=== PATIENT | female | born 1950 | race Caucasian/White ===

== ENCOUNTER 2019-12-06 15:53 | Outpatient (CLI) | payer MEDICARE, OTHER, SELFPAY ==
--- NOTE | 2019-12-06 16:06 | USCV_ITS ---
Aleida Sheriff Age: 69 Gender: F : 1950 Exam Date: 12/06/2019 16:25 Ordering Phys: Mario Hanna MD Technologist: Silvia Ferrer [place] [facility] [place] SWOLLEN LEGS HISTORY: Swollen legs PROCEDURES: The venous duplex Doppler examination of both lower extremities was performed in the standard fashion. The following venous structures were evaluated: common femoral vein, profunda vein, proximal portion of the greater saphenous vein, superficial femoral vein, and the popliteal vein. In addition, the posterior tibial and peroneal trunk were evaluated. Serial compression, augmentation maneuvers, and spectral Doppler flow evaluation were performed. FINDINGS: No DVT seen in any vessel examined CONCLUSIONS No evidence of right lower extremity DVT. No evidence of left lower extremity DVT. Thad Ward MD (Electronically Signed) Final Date: 07 Dec 2019 11:56 S
== END 2019-12-06 15:54 | disposition home or self-care (01) ==
LOC: RAD 15:59
PROVIDERS: PCP Family Medicine; Visit Provider Internal Medicine Pulmonary Disease
DX: R60.0 Localized edema (principal); M79.605 Pain in left leg; M79.604 Pain in right leg
CPT/HCPCS: 93970

== ENCOUNTER → 2020-07-26 10:25 | Outpatient (BNVA) | payer MEDICARE, OTHER, SELFPAY | PROVIDERS: PCP Family Medicine; Visit Provider Nurse Practitioner Family | DX: L40.50 Arthropathic psoriasis, unspecified (principal); Z51.81 Encounter for therapeutic drug level monitoring; Z11.1 Encounter for screening for respiratory tuberculosis | CPT/HCPCS: 80053; 85007; 85027; 85651; 86140; 86580 ==

== ENCOUNTER 2021-02-11 09:05 | Outpatient (CLI) | payer MEDICARE, OTHER, SELFPAY ==
[2021-02-11 09:39] LABS: Chol HDL Ratio 3.46 mg/dL (0.0-4.40); Cholesterol 197 mg/dL (0-200); HDL Cholesterol 57 mg/dL (60-100); LDL Cholesterol Calculated 109 mg/dL (50-129); LDL HDL Ratio 1.91 RATIO (0.00-3.22); Triglycerides 157 mg/dL (0-150)
== END 2021-02-11 09:06 | disposition home or self-care (01) ==
LOC: LAB 09:06
PROVIDERS: PCP Family Medicine; Visit Provider Family Medicine
DX: E78.5 Hyperlipidemia, unspecified (principal); Z13.220 Encounter for screening for lipoid disorders
CPT/HCPCS: 36415; 80061

== ENCOUNTER 2021-06-09 13:00 | Outpatient (CLI) | payer MEDICARE, SELFPAY ==
--- NOTE | 2021-06-09 13:15 | XRR_ITS ---
PROCEDURE INFORMATION: Exam: XR Left Knee Exam date and time: 06/09/2021 1:15 PM Age: 71 years old Clinical indication: Pain; Knee; Left; Additional info: M25.562 - pain in left knee TECHNIQUE: Imaging protocol: XR Left knee. Views: 3 views. COMPARISON: CR Foot 3 views, LEFT* [id number] 06/08/2019 10:46 AM FINDINGS: Bones/joints: Normal. Soft tissues: Normal. XR/XR knee LT 3V* [id number] IMPRESSION: No acute findings. Radiation Dose CTDIVOL = (mGy): DLP = (mGy-cm)
== END 2021-06-09 13:01 | disposition home or self-care (01) ==
LOC: RAD 13:04
PROVIDERS: PCP Family Medicine; Visit Provider Nurse Practitioner Family
DX: M25.562 Pain in left knee (principal)
CPT/HCPCS: 73562

== ENCOUNTER → 2022-03-31 12:06 | Outpatient (BNVA) | payer MEDICARE, SELFPAY | PROVIDERS: PCP Family Medicine; Referring Provider Family Medicine; Visit Provider Student in an Organized Health Care Education/Training Program | DX: M17.12 Unilateral primary osteoarthritis, left knee (principal) | CPT/HCPCS: 73560; 73565; 99203; 99204 ==

== ENCOUNTER 2022-03-31 15:17 | Outpatient (CLI) | payer MEDICARE, SELFPAY | END 2022-03-31 15:18 | disposition home or self-care (01) | LOC: SPT 15:25 | PROVIDERS: PCP Family Medicine; Visit Provider Student in an Organized Health Care Education/Training Program | DX: M17.12 Unilateral primary osteoarthritis, left knee (principal) | CPT/HCPCS: 97760; L1852 ==

== ENCOUNTER → 2022-05-12 13:27 | Outpatient (BNVA) | payer MEDICARE, OTHER, SELFPAY | PROVIDERS: PCP Family Medicine; Visit Provider Nurse Practitioner Family | DX: R30.0 Dysuria (principal); R31.9 Hematuria, unspecified; N39.0 Urinary tract infection, site not specified; K21.9 Gastro-esophageal reflux disease without esophagitis | CPT/HCPCS: 81000; 87077; 87086; 87184 ==

== ENCOUNTER → 2022-05-22 10:16 | Outpatient (BNVA) | payer MEDICARE, OTHER, SELFPAY | PROVIDERS: PCP Nurse Practitioner Family; Visit Provider Nurse Practitioner Family | DX: N39.0 Urinary tract infection, site not specified (principal) | CPT/HCPCS: 87086 ==

== ENCOUNTER → 2022-05-29 10:45 | Outpatient (BNVA) | payer MEDICARE, OTHER, SELFPAY | PROVIDERS: PCP Nurse Practitioner Family; Visit Provider Nurse Practitioner Family | DX: N39.0 Urinary tract infection, site not specified (principal); Z11.1 Encounter for screening for respiratory tuberculosis | CPT/HCPCS: 81000; 87077; 87086; 87184 ==

== ENCOUNTER → 2022-07-23 12:16 | Outpatient (BNVA) | payer MEDICARE, OTHER, SELFPAY | PROVIDERS: PCP Nurse Practitioner Family; Visit Provider Internal Medicine | DX: Z01.818 Encounter for other preprocedural examination (principal); R07.9 Chest pain, unspecified; J44.9 Chronic obstructive pulmonary disease, unspecified; Z87.891 Personal history of nicotine dependence | CPT/HCPCS: 99204 ==

== ENCOUNTER 2022-07-24 10:34 | Outpatient (CLI) | payer MEDICARE, OTHER, SELFPAY ==
--- NOTE | 2022-07-24 10:52 | XR_ITS ---
WS: [id number] Chest 2 views, 07/24/2022 Clinical Data: J20.8 - Acute bronchitis due to other specified organisms Comparison: None. Findings: No nodules, masses or effusions are seen. The heart is normal. The pulmonary vascularity is not increased. No pneumonia or pneumothorax is seen. There is a patchy left lower lobe opacity which probably represents atelectasis and is less likely to represent pneumonia. The aortic arch and desce nding thoracic aorta show tortuosity. There is a hiatal hernia behind the heart. XR/XR chest 2V* [id number] Impression: 1. Patchy left lung opacity which probably represents atelectasis rather than p neumonia. 2. Atherosclerosis and hiatal hernia.
== END 2022-07-24 10:35 | disposition home or self-care (01) ==
LOC: RAD 10:39
PROVIDERS: PCP Nurse Practitioner Family; Visit Provider Nurse Practitioner Family
DX: J20.8 Acute bronchitis due to other specified organisms (principal); B96.89 Other specified bacterial agents as the cause of diseases classified elsewhere; I70.90 Unspecified atherosclerosis; K44.9 Diaphragmatic hernia without obstruction or gangrene
CPT/HCPCS: 71046

== ENCOUNTER 2022-07-27 23:11 | Observation (INO) | payer MEDICARE, OTHER, SELFPAY ==
[2022-07-27 23:13] VITALS: BP 151/84; PULSE 65; RESP 18; TEMP 36.4; O2SAT 98; BMI 33.1
--- NOTE | 2022-07-27 23:25 | ED_ITS ---
HPI - General Adult General: Chief complaint: General Medical Stated complaint: Neck Pain Shooting Down Time Seen by Provider: 07/27/22 23:25 History of Present Illness: Ms. Corrales is a 72-year-old lady with COPD presenting to the emergency department due to abnormal feeling in her chest and head. She reports being at her baseline health when she had sudden onset while sitting. She had abnormal feeling in her head and left-sided headache associated with abnormal chest feeling as well. She does endorse a recent history of chest pain and did have chest pain with radiation down the right arm on her way here. Intensity symptoms is moderate. Course has persisted. She has difficulty characterizing symptoms other than an abnormal feeling which she has not had before. No other specific changes in health, exacerbating, or alleviating factors identified. Onset (ago): hour(s) Location: head, chest, left, right and upper extremity Severity: moderate Quality: aching Relieving factors: none Exacerbating factors: none Associated symptoms: Reports headache(s) and other Review of Systems General: Reports: 10 or more systems reviewed and unremarkable except in HPI and below Neuro: Reports: headache(s) PFSH ED PFSH: Medical History COPD (chronic obstructive pulmonary disease) Left knee DJD Psoriatic arthritis Surgical History History of cholecystectomy Family History Father Cancer Mother CAD (coronary artery disease) Diabetes Hypertension Social History Smoking and tobacco status: former smoker Quit status (tobacco): has quit using tobacco Year quit tobacco: 1999 Alcohol intake: never Adopted: No Caregiver/support person: No Lives independently: No Household members: spouse Housing: House Marital status: Highest education level completed: High School Graduate service: No Current occupational status: retired Sexually active: Yes Current gender identity: Female Physical Exam Const: COMMON NORMALS: patient oriented x3 and alert GENERAL APPEARANCE: cooperative and well developed HENMT: COMMON NORMALS: normocephalic and atraumatic HEAD & SCALP: normocephalic and atraumatic THROAT: posterior oropharynx normal Eye: COMMON NORMALS: conjunctivae normal CONJUNCTIVA: Yes conjunctivae normal SCLERA: sclerae normal Neck/C-Spine: COMMON NORMALS: supple GENERAL: Yes trachea midline Resp: COMMON NORMALS: normal respiratory effort EFFORT & INSPECTION: Yes able to speak in complete sentences Cardio: COMMON NORMALS: regular rate and regular rhythm RATE: regular rate RHYTHM: regular rhythm GI: COMMON NORMALS: Soft to palpation PALPATION: Yes Soft to palpation and No Tenderness to palpation present (GI) Extremity: GENERAL: Yes normal exam except as noted and No edema Neuro: COMMON NORMALS: patient oriented x3, CN's II-XII intact bilaterally, moves all extremities, no focal motor deficits and no sensory deficits noted SENSORIUM/ORIENTATION: Yes alert and No Orientation impaired Psych: COMMON NORMALS: mental status grossly normal and Normal thought process present THOUGHT PROCESS: Normal thought process present Course Vital Signs: Vital signs: Vital Signs Temperature 97.9 F 07/28/22 08:00 Pulse Rate 0 L 07/28/22 14:00 Respiratory Rate 16 07/28/22 08:00 Blood Pressure 135/63 07/28/22 12:10 Pulse Oximetry 96 07/28/22 08:00 Oxygen Delivery Me thod 07/28/22 16:00 MDM - General Adult Medical Decision Making 72-year-old lady presenting with abnormal chest pain with other associated sy mptoms including abnormal heart feeling and headache. No focal neurologic deficits appreciated on initial exam. EKG shows sinus rhythm with no STEMI. No significant hematologic or metabolic abnormalities. D-dimer is negative. 2- hour delta troponin in negative range. No UTI rapid viral studies are negative. Chest x-ray with no lobar consolidation or pneumothorax. Given sudden onset of symptoms as well as headache and questionable neurologic component CTA advanced imaging is required. No evidence of large vessel occlusion or significant stenosis. The exact etiology of patient's symptoms is unclear though she does have chest pain and is not low risk by heart score. The results of ED evaluation were discussed with the patient including possible disposition options. I discussed risk stratification by heart score and estimated risk of major adverse cardiac events. The patient wishes to proceed with in-hospital management. I discussed plan for admission due to requirement for level of care not available if discharged to prevent significant worsening/deterioration. Patient agreeable with plan. Discussed with hospitalist service who was agreeable to admit patient. Medical Records I reviewed the patient's medical records. Lab Data I reviewed the patient's lab results. 07/28/22 00:13 07/28/22 00:13 Radiology Impressions Chest X-Ray 07/28/22 00:00 IMPRESSION: 1. Small hiatal hernia noted. 2. No acute abnormality demonstrated. 3. There is no interval change from the prior examination. Head/Neck CTA 07/28/22 00:59 IMPRESSION: 1. No acute infarct or hemorrhage. 2. Mild parenchymal atrophy and chronic small vessel disease. 3. No large vessel occlusion or stenosis. IMPRESSION: 1. No vascular stenosis, occlusion or dissection. 2. Nonspecific prominent cervical lymph nodes. Recommend attention on any followup exams. REFERENCES: NASCET CRITERIA. The degree of stenosis in the cervical segment of the internal carotid artery is based on NASCET criteria. Normal is no stenosis. Mild is less than 50% stenosis. Moderate is 50-69% stenosis. Severe is 70% to 99% stenosis. Total occlusion is no detectable patent lumen. Chest CTA 07/28/22 05:05 IMPRESSION: 1. No acute abnormality. No evidence of pulmonary embolus or aortic dissection. 2. There are several small noncalcified pulmonary nodules measuring up to 4 mm in diameter.For patients at low risk (minimal or absent history of smoking and of other known risk factors), no routine follow-up is indicated. For patients at high risk (history of smoking or of other known risk factors), consider optional CT Chest at 12 months. (Reference: Edna) 3. Large hiatal hernia. REFERENCES: Edna Christensen, et al. Guidelines for Management of Incidental Pulmonary Nodules Detected on CT Images: From the Fleischner Society 2017. Radiology. 2017;284(1):228-243. Laboratory Results WBC 6.4 10^3/uL (4.0-10.0) 07/28/22 00:13 RBC 4.35 10^6/uL (4.1-5.3) 07/28/22 00:13 Hgb 12.3 g/dL (11.5-15.3) 07/28/22 00:13 Hct 39.7 % (37.0-47.0) 07/28/22 00:13 MCV 91.3 fl (81-99) 07/28/22 00:13 MCH 28.3 pg (28.0-34.0) 07/28/22 00:13 MCHC 31.0 g/dL (30.0-36.0) 07/28/22 00:13 RDW 14.6 % (12.1-15.1) 07/28/22 00:13 Plt Count 343 10^3/cmm (130-400) 07/28/22 00:13 MPV 9.0 fL (7.4-10.4) 07/28/22 00:13 Neut % (Auto) 49.1 % 07/28/22 00:13 Lymph % (Auto) 36.0 % 07/28/22 00:13 [place] % (Auto) 12.4 % 07/28/22 00:13 Eos % (Auto) 1.7 % 07/28/22 00:13 Baso % (Auto) 0.6 % 07/28/22 00:13 Neut # (Auto) 3.16 10^3/uL (1.8-7.7) 07/28/22 00:13 Lymph # (Auto) 2.3 10^3/uL (0.8-4.8) 07/28/22 00:13 [place] # (Auto) 0.8 10^3/uL (0.2-0.9) 07/28/22 00:13 Eos # (Auto) 0.1 10^3/uL (0.0-0.8) 07/28/22 00:13 Baso # (Auto) 0.0 10^3/uL (0.0-0.1) 07/28/22 00:13 Nucleated RBC % (auto) 0 % 07/28/22 00:13 Nucleated RBCs # 0.0 /100WBC 07/28/22 00:13 Sodium 139 mmol/L (136-145) 07/28/22 00:13 Potassium 3.7 mmol/L (3.5-5.1) 07/28/22 00:13 Chloride 102 mmol/L (98-107) 07/28/22 00:13 Carbon Dioxide 24 mmol/L (22-29) 07/28/22 00:13 Anion Gap 16.7 (5-19) 07/28/22 00:13 BUN 14 mg/dL (8-23) 07/28/22 00:13 Creatinine 0.8 mg/dL (0.5-0.9) 07/28/22 00:13 GFR Calculation Not Reportable 07/28/22 00:13 Glucose 89 mg/dL (65-115) 07/28/22 00:13 Calculated Osmolality 288 mOsm/kg (285-295) 07/28/22 00:13 Calcium 9.3 mg/dL (8.5-10.5) 07/28/22 00:13 Total Bilirubin 0.2 mg/dL (0.15-1.2) 07/28/22 00:13 AST 15 U/L (0-32) 07/28/22 00:13 ALT 13 U/L (0-33) 07/28/22 00:13 Alkaline Phosphatase 42 U/L (35-105) 07/28/22 00:13 Troponin T Baseline 12 ng/L (0-10) H 07/28/22 00:13 Troponin T 120 Minute 11.23 ng/L (0-10) H 07/28/22 01:54 Delta Troponin T -0.77 ABS# (0-10) L 07/28/22 01:54 C-Reactive Protein 3.0 mg/L (0.0-4.9) 07/28/22 00:13 NT-Pro-B Natriuret Pep 76 pg/mL (0-125) 07/28/22 00:13 Total Protein 7.0 g/dL (6.6-8.7) 07/28/22 00:13 Albumin 4.0 g/dL (3.5-5.2) 07/28/22 00:13 Globulin 3.0 g/dL (1.3-4.6) 07/28/22 00:13 Procalcitonin 0.02 ng/mL (0-0.5) 07/28/22 00:13 TSH 2.73 uIU/mL (0.27-4.20) 07/28/22 00:13 Urine Color Yellow (Yellow) 07/28/22 00:13 Urine Appearance Clear (CLEAR) 07/28/22 00:13 Urine pH 6.5 (5-7) 07/28/22 00:13 Ur Specific [place] 1.010 (1.005-1.030) 07/28/22 00:13 Urine Protein Neg (Negative) 07/28/22 00:13 Urine Glucose (UA) Norm (Normal) 07/28/22 00:13 Urine Ketones Negative (Negative) 07/28/22 00:13 Urine Blood Neg (Negative) 07/28/22 00:13 Urine Nitrate Negative (Negative) 07/28/22 00:13 Urine Bilirubin Neg (Negative) 07/28/22 00:13 Urine Urobilinogen Norm mg/dL (Negative) 07/28/22 00:13 Ur Leukocyte Esterase Negative (Negative) 07/28/22 00:13 Influenza Type A Ag negative (Negative) 07/28/22 00:13 Influenza Type B Ag negative (Negative) 07/28/22 00:13 SARS-CoV-2 Ag (Rapid) negative (Negative) 07/28/22 00:13 Discharge Plan Discharge Patient Disposition: Placed in Observation Admit Provider: Leoncio Bustos Clinical Impression: Headache, Abnormal feeling, Atypical chest pain Discharge Diet: Usual diet Discharge Activity: Increase activity as tolerated Coding Level of Care Code ED Shellfish Checker for Charlesg Roshan
[2022-07-28] VITALS (14 sets, daily range): BP systolic 117–144; BP diastolic 63–84; PULSE 0–86; RESP 14–18; TEMP 36.5–36.6; O2SAT 92–98
--- NOTE | 2022-07-28 | XRR_ITS ---
PROCEDURE INFORMATION: Exam: XR Chest Exam date and time: 07/28/2022 12:14 AM Age: 72 years old Clinical indication: Pain; Chest pressure; Patient HX: C/O chest discomfort. TECHNIQUE: Imaging protocol: Radiologic exam of the chest. Views: 1 view. COMPARISON: CR XR chest 2V* [id number] 07/24/2022 10:57 AM FINDINGS: Lungs: Mild chronic increased interstitial lung markings. No consolidative pulmonary infiltrates are noted. Pleural spaces: No pleural effusion. No pneumothorax. Heart/Mediastinum: Small hiatal hernia noted. Bones/joints: Degenerative spine changes are noted. XR/XR chest 1V portable [id number] IMPRESSION: 1. Small hiatal hernia noted. 2. No acute abnormality demonstrated. 3. There is no interval change from the prior examination.
--- NOTE | 2022-07-28 00:01 | ECG_ITS ---
[facility] Test Date: 2022-07-28 Pat Name: Aleida Sheriff Department: Room: Gender: Female Senior Engineer: : 1950 Requested By: Chris Camacho Order Number: [id number] Keyanna MD: Jef Orona M.D. Measurements Intervals [place] Rate: 64 P: 64 LA: 158 QRS: 30 QRSD: 92 T: 39 QT: 403 QTc: 417 Interpretive Statements SINUS RHYTHM LOW QRS VOLTAGE IN PRECORDIAL LEADS [QRS DEFLECTION < 1.0 mV IN CHEST LEADS] POSSIBLE RIGHT VENTRICULAR CONDUCTION DELAY [RSR (QR) IN V1/V2] No previous ECG available for comparison Electronically Signed On 07-28-2022 11:54:21 CASING FLUID TENDER by Jef Orona M.D. [id number]
[2022-07-28 00:23] LABS: Add Urine Microscopic? NO; Charge for UA Resulting for Rev
[2022-07-28 00:25] LABS: Basophils % 0.6 %; Eosinophils # 0.1 10^3/uL (0.0-0.8); Eosinophils % 1.7 %; Hematocrit 39.7 % (37.0-47.0); Hemoglobin 12.3 g/dL (11.5-15.3); Lymphocytes # 2.3 10^3/uL (0.8-4.8); Mean Corpuscular Hemoglobin 28.3 pg (28.0-34.0); Mean Corpuscular Volume 91.3 fl (81-99); Monocytes # 0.8 10^3/uL (0.2-0.9); Monocytes % 12.4 %; Neutrophils # 3.16 10^3/uL (1.8-7.7); Neutrophils % 49.1 %; Nucleated Red Blood Cells % 0 %; Platelet Count 343 10^3/cmm (130-400); Red Blood Count 4.35 10^6/uL (4.1-5.3); Red Cell Distribution Width 14.6 % (12.1-15.1); White Blood Count 6.4 10^3/uL (4.0-10.0)
[2022-07-28 00:31] LABS: Bilirubin Urine Neg (Negative); Blood Urine Neg (Negative); Glucose Urine UA Norm (Normal); Ketones Urine Negative (Negative); Leukocyte Esterase Urine Negative (Negative); Nitrate Urine Negative (Negative); Protein Urine Neg (Negative); Urine Appearance Clear (CLEAR); Urine Color Yellow (Yellow); Urobilinogen Urine Norm (Negative); pH Urine 6.5 (5-7)
[2022-07-28 00:45] LABS: Influenza A by IFA negative (Negative); Influenza B by IFA negative (Negative); SARS Covid-2 Antigen negative (Negative)
[2022-07-28 00:52] LABS: Troponin(5th) Baseline 12 ng/L (0-10)
[2022-07-28 00:58] LABS: NT Pro B Type Natriuretic Pept 76 pg/mL (0-125); Procalcitonin 0.02 ng/mL (0-0.5); Thyroid Stimulating Hormone 2.73 uIU/mL (0.27-4.20)
--- NOTE | 2022-07-28 00:59 | CTR_ITS ---
PROCEDURE INFORMATION: Exam: CTA Head With Contrast, Arteriography Exam date and time: 07/28/2022 1:06 AM Age: 72 years old Clinical indication: Dizziness and giddiness; Patient HX: C/O dizziness with neck pain; Additional info: Pain in neck, unsteady feeling TECHNIQUE: Imaging protocol: Computed tomographic angiography of the head with contrast. Exam focused on the arteries. 3D rendering (Not supervised by radiologist): MIP and/or 3D reconstructed images were created by the technologist. Radiation optimization: All CT scans at this facility use at least one of these dose optimization techniques: automated exposure control; mA and/or kV adjustment per patient size (includes targeted exams where dose is matched to clinical indication); or iterative reconstruction. Contrast material: OMNI 350; Contrast volume: 85 ml; Contrast route: INTRAVENOUS (IV); COMPARISON: No relevant prior studies available. RADIATION DOSE METRICS: Total DLP (mGy-cm): 1000.46 FINDINGS: ANTERIOR CIRCULATION: Right internal carotid artery: Intracranial segment is patent with no significant stenosis. No aneurysm. Right middle cerebral artery: No occlusion or significant stenosis. No aneurysm. Right anterior cerebral artery: No occlusion or significant stenosis. No aneurysm. Left internal carotid artery: Intracranial segment is patent with no significant stenosis. No aneurysm. Left middle cerebral artery: No occlusion or significant stenosis. No aneurysm. Left anterior cerebral artery: No occlusion or significant stenosis. No aneurysm. POSTERIOR CIRCULATION: Right vertebral artery: No occlusion or significant stenosis. No aneurysm. Left vertebral artery: No occlusion or significant stenosis. No aneurysm. Basilar artery: No occlusion or significant stenosis. No aneurysm. Right posterior cerebral artery: origin right WOOD SCRAP HANDLER. Left posterior cerebral artery: origin left WOOD SCRAP HANDLER. Cavernous Sinus: Dural venous sinuses are patent. Brain: There is mild parenchymal atrophy and chronic small vessel disease. No cerebral/cerebellar infarct. No brain parenchymal or extra-axial hemorrhage. Cerebral ventricles: No ventriculomegaly. Bones/joints: Unremarkable. No acute fracture. Soft tissues: Unremarkable. PROCEDURE INFORMATION: Exam: CTA Neck With Contrast Exam date and time: 07/28/2022 1:06 AM Age: 72 years old Clinical indication: Dizziness and giddiness; Patient HX: C/O dizziness with neck pain; Additional info: Pain in neck, unsteady feeling TECHNIQUE: Imaging protocol: Computed tomographic angiography of the neck with contrast. 3D rendering (Not supervised by radiologist): MIP and/or 3D reconstructed images were created by the technologist. Radiation optimization: All CT scans at this facility use at least one of these dose optimization techniques: automated exposure control; mA and/or kV adjustment per patient size (includes targeted exams where dose is matched to clinical indication); or iterative reconstruction. Contrast material: OMNI 350; Contrast volume: 85 ml; Contrast route: INTRAVENOUS (IV); COMPARISON: CR (CHEST, ) 07/28/2022 12:14 AM RADIATION DOSE METRICS: Total DLP (mGy-cm): 1000.46 FINDINGS: Right common carotid artery: No stenosis. No dissection or occlusion. Right internal carotid artery: No stenosis of the extracranial segment. No dissection or occlusion. Right external carotid artery: No occlusion or stenosis of the origin. Left common carotid artery: No stenosis. No dissection or occlusion. Left internal carotid artery: No stenosis of the extracranial segment. No dissection or occlusion. Left external carotid artery: No occlusion or stenosis of the origin. Right vertebral artery: No stenosis. No dissection or occlusion. Left vertebral artery: No stenosis. No dissection or occlusion. Lymph nodes: Nonspecific prominent cervical lymph nodes. Soft tissues: Normal. No significant soft tissue swelling. Bones/joints: No acute fracture. CT/CT angio headneck* [id number] IMPRESSION: 1. No acute infarct or hemorrhage. 2. Mild parenchymal atrophy and chronic small vessel disease. 3. No large vessel occlusion or stenosis. IMPRESSION: 1. No vascular stenosis, occlusion or dissection. 2. Nonspecific prominent cervical lymph nodes. Recommend attention on any followup exams. REFERENCES: NASCET CRITERIA. The degree of stenosis in the cervical segment of the internal carotid artery is based on NASCET criteria. Normal is no stenosis. Mild is less than 50% stenosis. Moderate is 50-69% stenosis. Severe is 70% to 99% stenosis. Total occlusion is no detectable patent lumen.
[2022-07-28 01:11] LABS: Alanine Aminotransferase 13 U/L (0-33); Alkaline Phosphatase 42 U/L (35-105); Anion Gap 16.7 (5-19); Aspartate Amino Transferase 15 U/L (0-32); Blood Urea Nitrogen 14 mg/dL (8-23); Calcium 9.3 mg/dL (8.5-10.5); Carbon Dioxide 24 mmol/L (22-29); Chloride 102 mmol/L (98-107); Glucose 89 mg/dL (65-115); Osmolality Calculated 288 mOsm/kg (285-295); Potassium 3.7 mmol/L (3.5-5.1); Sodium 139 mmol/L (136-145); Total Bilirubin 0.2 mg/dL (0.15-1.2)
[2022-07-28] MEDS: iohexol 350 mg/mL 500 mL Btl (per mL) IV ×2 (01:20→06:01)
[2022-07-28] MEDS: sodium chloride 0.9% 1,000 ML 999 ML IV (01:39)
--- NOTE | 2022-07-28 02:01 | ECG_ITS ---
[facility] Test Date: 2022-07-28 Pat Name: Aleida Sheriff Department: Room: Gender: Female Call Manager: : 1950 Requested By: Chris Camacho Order Number: [id number] Keyanna MD: Jef Orona M.D. Measurements Intervals [place] Rate: 64 P: 69 MO: 161 QRS: 35 QRSD: 98 T: 43 QT: 411 QTc: 425 Interpretive Statements SINUS RHYTHM LOW QRS VOLTAGE IN PRECORDIAL LEADS [QRS DEFLECTION < 1.0 mV IN CHEST LEADS] POSSIBLE RIGHT VENTRICULAR CONDUCTION DELAY [RSR (QR) IN V1/V2] Compared to ECG 07/28/2022 00:20:32 No significant changes Electronically Signed On 07-28-2022 11:59:32 GLASS MAKER by Jef Orona M.D. [id number]
[2022-07-28 02:32] LABS: Troponin 5 2HR 11.23 ng/L (0-10)
[2022-07-28 02:38] LABS: Troponin 5 2HR Delta -0.77 ABS# (0-10)
--- NOTE | 2022-07-28 05:05 | USCV_ITS ---
Aleida Sheriff Age: 72 Gender: F : 1950 Exam Date: 07/28/2022 08:19 Ordering Phys: Leoncio Bustos MD Technologist: Russ Vilchis [place] [facility] [place]: chest pain BP: 135 / 73 HR: Rhythm: Sinus Technical Quality: Adequate MEASUREMENTS (Male / Female) Normal Values 2D ECHO LV Diastolic Diameter PLAX 4.0 cm 4.2 - 5.9 / 3.9 - 5.3 cm LV Systolic Diameter PLAX 2.1 cm IVS Diastolic Thickness 0.9 cm 0.6 - 1.0 / 0.6 - 0.9 cm IVS Systolic Thickness 1.5 cm LVPW Diastolic Thickness 1.0 cm 0.6 - 1.0 / 0.6 - 0.9 cm LVPW Systolic Thickness 1.1 cm LVOT Diameter 2.0 cm LV Ejection Fraction 2D Teich 78.1 % LV Ejection Fraction MOD 2C 72.0 % LV Ejection Fraction 2C AL 71.6 % LA Diameter 3.4 cm Aorta at Sinotubular Diameter 2.3 cm IVC Diameter 1.4 cm M-MODE Aortic Annulus Diameter 3.3 cm LA Ao Ratio MM 1.1 MV E Point Septal Separation 1.0 cm DOPPLER AV Peak Velocity 153.0 cm/s LVOT Peak Velocity 103.0 cm/s AV Area Cont Eq vti 2.4 cm squared AV Area Cont Eq pk 2.2 cm squared MV Area PHT 5.0 cm squared Mitral E to A Ratio 1.1 MV E' Velocity 45.0 cm/s Mitral E to MV E' Ratio 8.2 Mitral E to LV E' Lateral Ratio 8.1 Mitral E to LV E' Septal Ratio 8.5 TR Peak Velocity 230.3 cm/s TR Peak Gradient 21.2 mmHg TV Peak E Velocity 97.0 cm/s Right Atrial Pressure 3.0 mmHg Pulmonary Artery Systolic Pressu 24.2 mmHg RV Acceleration Time 0.1 s FINDINGS Left Ventricle Normal left ventricular size and systolic function, EF 68 %. No regional wall motion abnormalities. Right Ventricle The right ventricle is normal in size and function. Right Atrium The right atrium is normal in size. Left Atrium The left atrium is normal in size. Mitral Valve No gross abnormalities noted Aortic Valve Thickened aortic valve. Trace aortic valve regurgitation. Tricuspid Valve Mild tricuspid valve regurgitation. Pulmonic Valve No gross abnormality noted Pericardium Normal pericardium without effusion. Aorta Normal ascending aorta dimension. IVC Normal inferior vena cava. CONCLUSIONS Normal left ventricular size and systolic function, EF 68 %. No regional wall motion abnormalities. Thickened aortic valve. Trace aortic valve regurgitation. Mild tricuspid valve regurgitation. Estimated pulmonary artery peak systolic pressure of 24 mmHg There is no pericardial effusion. There are no intracardiac masses. No similar previous studies are available for comparison Dr Chandrakant Krishnamurthy MD [facility] (Electronically Signed) Final Date: 28 July 2022 22:46 S
--- NOTE | 2022-07-28 05:05 | CTR_ITS ---
PROCEDURE INFORMATION: Exam: CTA Chest With Contrast Exam date and time: 07/28/2022 5:52 AM Age: 72 years old Clinical indication: Radiating; Patient HX: PT states she has a sharp pain that starts from the neck that radiates down to her upper back and into her chest. Had a similar episode about one month ago. History of copd. ; Additional info: Aortic dissection TECHNIQUE: Imaging protocol: Computed tomographic angiography of the chest with contrast. 3D rendering (Not supervised by radiologist): MIP and/or 3D reconstructed images were created by the technologist. Radiation optimization: All CT scans at this facility use at least one of these dose optimization techniques: automated exposure control; mA and/or kV adjustment per patient size (includes targeted exams where dose is matched to clinical indication); or iterative reconstruction. Contrast material: OMNI 350; Contrast volume: 100 ml; Contrast route: INTRAVENOUS (IV); COMPARISON: CR (CHEST, ) 07/28/2022 12:14 AM RADIATION DOSE METRICS: Total DLP (mGy-cm): 803.66 FINDINGS: Pulmonary arteries: Normal. No pulmonary emboli. Aorta: Mild calcification of the thoracic aorta. No thoracic aortic aneurysm or dissection. Lungs: A few small benign calcified granulomas are present in the lungs. Calcified benign lymph nodes are present in the right pulmonary hilum and mediastinum. There is scattered mild fibrosis and basilar atelectasis. There are few small noncalcified pulmonary nodules measuring up to 4 mm in diameter. Pleural spaces: Unremarkable. No pneumothorax. No pleural effusion. Heart: The heart is not enlarged. No significant coronary artery calcification. Lymph nodes: No significant adenopathy. Diaphragm: Large hiatal hernia. Gallbladder and bile ducts: Cholecystectomy. Bones/joints: Chronic degenerative changes are present in the spine. No acute bony abnormality. Soft tissues: Unremarkable. CT/CT angio chest [id number] IMPRESSION: 1. No acute abnormality. No evidence of pulmonary embolus or aortic dissection. 2. There are several small noncalcified pulmonary nodules measuring up to 4 mm in diameter.For patients at low risk (minimal or absent history of smoking and of other known risk factors), no routine follow-up is indicated. For patients at high risk (history of smoking or of other known risk factors), consider optional CT Chest at 12 months. (Reference: Edna) 3. Large hiatal hernia. REFERENCES: Edna Christensen, et al. Guidelines for Management of Incidental Pulmonary Nodules Detected on CT Images: From the Fleischner Society 2017. Radiology. 2017;284(1):228-243.
--- NOTE | 2022-07-28 05:06 | NMCV_ITS ---
NM poly perf SPECT r/s* [id number] Aleida Sheriff Age: 72 Gender: F : 1950 Exam Date: 07/28/2022 10:40 Ordering Phys: Leoncio Bustos MD Technologist: DENNYS Roberts Exam Location: [facility] Indications: CHEST PAIN STRESS TEST Please see separate stress test report in [facility] for full findings IMAGE PROTOCOL Rest/Stress 1 Lexiscan Day Radiopharmaceutical Dose (mCi) Administration Site Administered by Rest: Tc-99m 10.6 IV DENNYS Roberts Sestamibi Stress:Tc-99m 32.3 IV DENNYS Car Sestamibi Rest: 28-Jul-2022 60 Discovery 630 Stress: 28-Jul-2022 30 Discovery 630 0.4mg Lexiscan. Images obtained in supine and prone position. SPECT RESULTS Technical Quality: Excellent Raw Data Analysis: Normal Image Corrections: No attenuation or motion correction applied Summed Stress Score: 5 Summed Rest Score: 3 Summed Difference Score: 2 PERFUSION FINDINGS Small to moderate area of decreased tracer uptake in the mid inferolateral, apical lateral and apical anterior region. Some reversibility was noted in the apical anterior and mid inferolateral regions, in the supine imaging. However with the prone imaging, there is no significant reversibility FUNCTIONAL RESULTS (calculated via Gated SPECT) Stress Image LV EF (%): 86 Stress EDV (mL):70 TID: 0.8 Stress ESV (mL):10 FUNCTIONAL FINDINGS: Segmental wall motion analysis revealing no gross wall motion abnormalities IMPRESSIONS 1. Myocardial perfusion imaging revealing small to moderate area of moderately decreased tracer uptake in the inferolateral and apical regions with subtle areas of reversibility, suggesting myocardial scarring in the distribution of the left circumflex artery with very small areas of asa-infarction ischemia. In view of the inconsistency with the prone imaging, the reliability is questionable. 2. Normal LV ejection fraction of 86%. 3. LV wall motion analysis revealing no gross wall motion abnormalities. 4. Normal LV volume No similar previous studies are available for comparison Dr Chandrakant Krishnamurthy MD [facility] (Electronically Signed) Final Date: 28 July 2022 13:03 S
--- NOTE | 2022-07-28 05:12 | P.HP_ITS ---
Providers/Chief Complaint Admitting Physician: Leoncio Bustos MD Primary Care Provider: CHANTALE Vázquez Chief Complaint: Neck Pain Shooting Down History of Present Illness Aleida Sheriff is a 72 year old female with a past medical history of alpha 1 antitrypsin, COPD, psoriatic arthritis, who presents to [facility] for atypical chest pain, neck pain, head pain. Patient tells me that roughly a month ago, she had 1 episode of severe chest pain, almost like something on hitting something on her chest, and knocked her off her feet, and it was really nothing that she is ever experienced before, does report shortness of breath with it, she saw cardiology not too long ago and they recommended an echocardiogram and stress testing. She been doing fine since then, but this evening, she tells me that she developed a severe sudden onset pain or strange sensation in her neck, radiating down her back, and into her chest. She tells me that is very difficult for her to describe, but she tells me that it was very severe, it is nothing that she is ever experienced before, it did radiate into the chest she feels, and into her back, she does describe it more as a sharp sensation. Denies any slurring of words, no paresthesias, no weakness, she did get up and she tells me that she went and checked her blood pressure, she did not notice noticed any balance issues, no weakness issues, her blood pressure was slightly elevated, 139/70, she was concerned so she had her drive her to the emergency room. She does report a history of bronchitis has been on Levaquin. Review of Systems Const: Denies: fever(s), chills, fatigue or malaise Eyes: Denies: change in vision or blurry vision Card: Reports: chest pain; Denies: palpitations, irregular heart rhythm, edema, lightheadedness, syncope, pre-syncope or dyspnea on exertion Resp: Denies: dyspnea, productive cough, non-productive cough or wheezing GI: Denies: abdominal pain, nausea, vomiting, hematemesis, diarrhea, hematochezia or melena : Denies: flank pain, dysuria or urinary frequency Musc: Reports: neck pain and back pain Skin/Breast: Denies: rash Neuro: Denies: headache(s), dizziness or vertigo Psych: Reports: anxiety Endo: Denies: polyuria or polydipsia Medications/Allergies Home Medications Medication Instructions Recorded Confirmed Last Taken Type arformoterol 15 mcg/2 mL solution 2 ml inhalation BID 06/06/21 07/23/22 Unknown History for nebulization (Brovana) budesonide 1 mg/2 mL suspension 0.5 mg inhalation BID 06/06/21 07/23/22 Unknown History for nebulization guselkumab 100 mg/mL subcutaneous mg SUBCUT 06/06/21 07/23/22 Unknown History auto-injector (Tremfya) pantoprazole 40 mg granules 40 mg PO DAILY 06/06/21 07/23/22 Unknown History delayed-release for susp in packet (Protonix) revefenacin 175 mcg/3 mL solution 175 mcg inhalation DAILY 06/06/21 07/23/22 Unknown History for nebulization (Yupelri) VICE PRESIDENT OF MARKETING BRACE #1 ea 03/31/22 07/22/22 Unknown Rx gabapentin 400 mg capsule 400 mg PO TID 05/29/22 07/23/22 Unknown History levofloxacin 500 mg tablet 500 mg PO DAILY 5 days #5 tabs 07/22/22 07/23/22 Unknown Rx Allergies Allergy/AdvReac Type Severity Reaction Status Date / Time No Known Allergies Allergy Verified 07/23/22 12:36 PFSH Acute PFSH: Medical History (Updated 07/28/22 @ 05:19 by Leoncio Bustos MD) COPD (chronic obstructive pulmonary disease) Left knee DJD Psoriatic arthritis Surgical History (Updated 07/28/22 @ 05:30 by Leoncio Bustos MD) History of cholecystectomy Family History Father Cancer Mother CAD (coronary artery disease) Diabetes Hypertension Social History Smoking and tobacco status: former smoker Quit status (tobacco): has quit using tobacco Year quit tobacco: 1999 Alcohol intake: never Adopted: No Caregiver/support person: No Lives independently: No Household members: spouse Housing: House Marital status: Highest education level completed: High School Graduate service: No Current occupational status: retired Sexually active: Yes Current gender identity: Female Vitals/I&O/Wt Last Vital Signs Temp 97.5 F L 07/27/22 23:13 Pulse 69 07/28/22 04:19 Resp 16 07/28/22 04:19 BP 128/79 07/28/22 04:19 Pulse Ox 96 07/28/22 04:19 O2 Del Method 07/27/22 23:13 07/27/22 07/27/22 07/28/22 14:59 22:59 06:59 Intake Total 1000 / 1000 Balance 1000 / 1000 Weight last 48 hrs Weight 87.543 kg Physical Exam Const: COMMON NORMALS: no acute distress and patient oriented x3 HENMT: COMMON NORMALS: normocephalic HEAD & SCALP: normocephalic Eye: COMMON NORMALS: Equal, round and reactive pupils present and EOMs intact bilaterally Neck/C-Spine: COMMON NORMALS: no JVD CERVICAL SPINE: Yes cervical ROM normal Resp: COMMON NORMALS: normal respiratory effort, No retractions, No use of accessory muscles and clear to auscultation bilaterally AUSCULTATION: clear to auscultation bilaterally Cardio: COMMON NORMALS: no JVD, regular rate, regular rhythm, S1 normal heart sound present and S2 normal heart sound present RATE: regular rate RHYTHM: regular rhythm HEART SOUNDS: S1 normal heart sound present and S2 normal heart sound present GI: COMMON NORMALS: Normal to inspection, nondistended, normoactive bowel s ounds present, Soft to palpation and non-tender PALPATION: Yes Soft to pa lpation Extremity: COMMON NORMALS: no calf tenderness and no pedal edema Neuro: COMMON NORMALS: patient oriented x3, CN's II-XII intact bilaterally, moves all extremities and no focal motor deficits Psych: COMMON NORMALS: mental status grossly normal Data 07/28/22 00:13 07/28/22 00:13 A&P Assessment and plan (1) Atypical chest pain: (2) Abnormal feeling: (3) COPD (chronic obstructive pulmonary disease): (4) Molbn-4-xkftnorzaxf deficiency: Plan Atypical chest pain -It is difficult to characterize exactly where the origin of patient's pain complaints are -However my primary concern is if this could be an aortic dissection or pulmonary embolism, due to the sudden nature, history of alpha-1 antitrypsin, no calf pain, no calf swelling -We will do CTA chest for carotid artery dissection -D-dimer -Serial EKGs, serial troponins, telemetry monitoring -Cardiac echo -I have ordered cardiac stress testing, but likely will not be done until tomorrow -neurocheck, nih, PT OT -Full code -SCDs for DVT prophylaxis, hold off on anticoagulation until dissection can rule out Attestations Medical Necessity Statement*: Patient requires hospitalization, outpatient with observation, for atypical chest pain, neck pain Coding Level of Care Code Acute Content Engineer for Chg Fwd Diagnoses Atypical chest pain R07.89 Abnormal feeling R44.9 COPD (chronic obstructive pulmonary disease) J44.9 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
--- NOTE | 2022-07-28 06:42 | ECG_ITS ---
[facility] Test Date: 2022-07-28 Pat Name: Aleida Sheriff Department: Room: 276 Gender: Female Route Manager: : 1950 Requested By: Chris Camacho Order Number: [id number] Keyanna MD: Jef Orona M.D. Measurements Intervals [place] Rate: 67 P: 72 DE: 142 QRS: 55 QRSD: 102 T: 53 QT: 401 QTc: 424 Interpretive Statements SINUS RHYTHM POSSIBLE RIGHT VENTRICULAR CONDUCTION DELAY [RSR (QR) IN V1/V2] Compared to ECG 07/28/2022 02:13:07 No significant changes Electronically Signed On 07-28-2022 11:59:13 ELECTRIC STOVE MECHANIC by Jef Orona M.D. [email or web address]
[2022-07-28 06:45] LABS: D Dimer <= 0.27 ug/mIFEU (0-0.59)
[2022-07-28 06:53] LABS: Troponin 5 6HR 12.13 ng/L (0-10)
[2022-07-28 07:00] LABS: NT Pro B Type Natriuretic Pept 85 pg/mL (0-125)
[2022-07-28 07:02] LABS: Troponin 5 6HR Delta 0.13 ng/L (0-12)
[2022-07-28] MEDS: budesonide 0.5 mg/2 mL Neb 0.25 MG INHALATION (07:51)
[2022-07-28] MEDS: regadenoson 0.4 Mg/5 ml Syringe IVP (11:15)
--- NOTE | 2022-07-28 13:28 | PC.OT ---
HOLD OT EVALUATION TODAY DUE TO STRESS TEST. WILL ATTEMPT TOMORROW.
--- NOTE | 2022-07-28 15:31 | PM.SDS ---
Short Stay Summary Providers Date of Admit/Discharge: 07/28/22 Attending Provider: Alexey Toussaint MD Primary Care Provider: CHANTALE Vázquez Chief Complaint: Neck Pain Shooting Down HPI History of Present Illness Aleida Sheriff is a 72 year old female Review of Systems General: Reports: 10 or more systems reviewed and unremarkable except in HPI and below Const: Denies: fever(s), chills, body aches, change in appetite, change in weight, malaise, night sweats, diaphoresis, change in sleep pattern, daytime sleepiness or snoring Eyes: Denies: change in vision, blurry vision, photophobia, eye discomfort or eye discharge ENMT: Denies: throat pain, enlarged tonsils, hoarseness, mouth pain, oral sores, dry mouth, tinnitus, nasal congestion or post nasal drip Card: Denies: chest pain, palpitations, irregular heart rhythm, edema, swelling of feet/ankles, lightheadedness, syncope, pre-syncope, dyspnea on exertion, orthopnea, leg pain with exertion or acrocyanosis Resp: Denies: dyspnea, productive cough, non-productive cough, wheezing, stridor, pain on inspiration, change in phlegm color, hemoptysis or chest congestion GI: Denies: abdominal pain, nausea, vomiting, hematemesis, coffee ground emesis, dysphagia, heartburn, diarrhea, constipation, bloating, GI cramping, change in bowel habits, pain on defecation, hematochezia or melena : Denies: flank pain, dysuria, urinary frequency, urinary urgency, urinary hesitancy, nocturia or hematuria Musc: Denies: neck pain, back pain, extremity pain, joint pain, joint swelling, joint redness, joint stiffness or limited range of motion Skin/Breast: Denies: rash Neuro: Denies: headache(s), numbness in extremities, weakness in extremities, sensory changes, lack of coordination, difficulty walking, frequent falls, dizziness, vertigo, confusion, Slurred speech present, difficulty communicating thoughts or seizure-like activity Psych: Denies: anxiety, depression, mood swings, panic attacks, hopelessness or irritability Endo: Denies: polyuria, polydipsia, tired all the time, cold intolerance, excessive sweating, flushing or heat intolerance Oren/Lymph: Denies: easy bruising or easy bleeding All/Imm: Denies: tongue swelling, facial swelling or acute wheezing Home Meds/Allergies Home Medications and Allergies Home Medications Medication Instructions Recorded Confirmed Type arformoterol 15 mcg/2 mL solution 2 ml inhalation BID 06/06/21 07/28/22 History for nebulization (Brovana) budesonide 1 mg/2 mL suspension 0.5 mg inhalation BID 06/06/21 07/28/22 History for nebulization guselkumab 100 mg/mL subcutaneous 100 mg SUBCUT .[id number] 06/06/21 07/28/22 History auto-injector (Tremfya) pantoprazole 40 mg granules 40 mg PO BEDTIME 06/06/21 07/28/22 History delayed-release for susp in packet (Protonix) revefenacin 175 mcg/3 mL solution 175 mcg inhalation DAILY 06/06/21 07/28/22 History for nebulization (Yupelri) gabapentin 400 mg capsule 400 mg PO TID 05/29/22 07/28/22 History albuterol sulfate 2.5 mg/3 mL 2.5 mg inhalation QID PRN 07/28/22 07/28/22 History (0.083 %) solution for nebulization Shortness Of Breath Allergies Allergy/AdvReac Type Severity Reaction Status Date / Time No Known Allergies Allergy Verified 07/23/22 12:36 PFSH Acute PFSH: Medical History (Updated 07/28/22 @ 05:19 by Leoncio Bustos MD) COPD (chronic obstructive pulmonary disease) Left knee DJD Psoriatic arthritis Surgical History (Updated 07/28/22 @ 05:30 by Leoncio Bustos MD) History of cholecystectomy Family History Father Cancer Mother CAD (coronary artery disease) Diabetes Hypertension Social History Smoking and tobacco status: former smoker Quit status (tobacco): has quit using tobacco Year quit tobacco: 1999 Alcohol intake: never Adopted: No Caregiver/support person: No Lives independently: No Household members: spouse Housing: House Marital status: Highest education level completed: High School Graduate service: No Current occupational status: retired Sexually active: Yes Current gender identity: Female Dietary Habits: Current diet type/program: regular Caffeine: Yes Vitals/I&O/Wt Last Vital Signs Temp 97.9 F 07/28/22 08:00 Pulse 86 07/28/22 12:10 Resp 16 07/28/22 08:00 BP 135/63 07/28/22 12:10 Pulse Ox 96 07/28/22 08:00 O2 Del Method 07/28/22 08:00 07/28/22 07/28/22 07/28/22 06:59 14:59 22:59 Intake Total 1000 / 1000 Output Total 0 / 0 Balance 1000 / 1000 Weight last 48 hrs Weight 87.543 kg Physical Exam Const: COMMON NORMALS: no acute distress and patient oriented x3 HENMT: COMMON NORMALS: normocephalic HEAD & SCALP: normocephalic Eye: COMMON NORMALS: Equal, round and reactive pupils present and EOMs intact bilaterally PUPIL: Yes Equal, round and reactive pupils present Neck/C-Spine: COMMON NORMALS: no JVD CERVICAL SPINE: Yes cervical ROM normal Resp: COMMON NORMALS: normal respiratory effort, No retractions, No use of accessory muscles and clear to auscultation bilaterally AUSCULTATION: clear to auscultation bilaterally Cardio: COMMON NORMALS: no JVD, regular rate, regular rhythm, S1 normal heart sound present and S2 normal heart sound present RATE: regular rate RHYTHM: regular rhythm HEART SOUNDS: S1 normal heart sound present and S2 normal heart sound present GI: COMMON NORMALS: Normal to inspection, nondistended, normoactive bowel sounds present, Soft to palpation and non-tender PALPATION: Yes Soft to palpation Extremity: COMMON NORMALS: no calf tenderness and no pedal edema Neuro: COMMON NORMALS: patient oriented x3, CN's II-XII intact bilaterally, moves all extremities and no focal motor deficits Psych: COMMON NORMALS: mental status grossly normal Hospital Course Hospital Course Aleida Sheriff is a 72 year old female with a past medical history of alpha 1 antitrypsin, COPD, psoriatic arthritis, who presents to [facility] for atypical chest pain, neck pain, head pain.? Patient tells me that roughly a month ago, she had 1 episode of severe chest pain, almost like something on hitting something on her chest, and knocked her off her feet, and it was really nothing that she is ever experienced before, does report shortness of breath with it, she saw cardiology not too long ago and they recommended an echocardiogram and stress testing.? She been doing fine since then, but this evening, she tells me that she developed a severe sudden onset pain or strange sensation in her neck, radiating down her back, and into her chest.? She tells me that is very difficult for her to describe, but she tells me that it was very severe, it is nothing that she is ever experienced before, it did radiate into the chest she feels, and into her back, she does describe it more as a sharp sensation.? Denies any slurring of words, no paresthesias, no weakness, she did get up and she tells me that she went and checked her blood pressure, she did not notice noticed any balance issues, no weakness issues, her blood pressure was slightly elevated, 139/70, she was concerned so she had her drive her to the emergency room.? She does report a history of bronchitis has been on Levaquin. Discharge Summary Patient is known to the hospital for further evaluation and management of atypical chest pain. Given the history of alpha-1 antitrypsin deficiency CTA was done to rule out pulmonary embolism and carotid artery dissection. Patient did not have any recurrence of chest pain during hospitalization. Lexiscan stress test was done which showed small to moderate area of moderately?decreased tracer uptake in the inferolateral and apical regions with subtle?areas of reversibility, suggesting myocardial scarring in the distribution of ?the left circumflex artery with very small areas of asa-infarction ischemia.??In view of the inconsistency with the prone imaging, the reliability is?questionable. Test results were discussed in detail with cardiology on-call. As per them there is a high chance of the study being false positive and recommended patient to be treated with medical management with close follow-up with cardiology. Plan was discussed in detail with patient and patient's family at bedside and they were agreeable. They were explained about danger signs, recurrence of chest pain and advised to come back to the ER if she has recurrence of chest pain. SSS Data Data Completed and Pending: Completed Studies During Hospitalization Category Date Time Status CT angio chest [id number] Routine Cat Scan 07/28/22 05:05 Completed CTA head neck [CT angio headneck* [id number]] Stat Cat Scan 07/28/22 00:59 Completed XR chest 1V yoandy ble [id number] Stat Exams 07/28/22 00:00 Completed NM poly perf SPECT r/s* [id number] Routin e Nuc Med 07/28/22 05:06 Completed Pending at discharge Category Date Time Status Sestamibi Stress Test Request Henrietta ne Exams 07/29/22 06:00 Ordered CV. echo complete * [id number] Routine Ultrasound 07/28/22 05:05 Taken Diagnoses at Discharge Discharge Diagnosis (1) Atypical chest pain: Status: Acute (2) Abnormal feeling: Status: Acute (3) COPD (chronic obstructive pulmonary disease): Status: Acute (4) Djapb-5-nhdtyiicipy deficiency: Status: Acute Discharge Plan Discharge Patient Disposition: Home Condition: Stable Prescriptions: New aspirin 81 mg capsule 81 mg PO DAILY Qty: 30 0RF atorvastatin 40 mg tablet 40 mg PO DAILY Qty: 30 0RF metoprolol tartrate 25 mg tablet 25 mg PO BID Qty: 60 0RF Continued pantoprazole [Protonix] [address] for susp in packet 40 mg PO BEDTIME Tremfya 100 mg/mL auto-injector 100 mg SUBCUT .[id number] budesonide 1 mg/2 mL suspension for nebulization 0.5 mg inhalation BID arformoterol [Brovana] 15 mcg/2 mL solution for nebulization 2 ml inhalation BID Yupelri 175 mcg/3 mL solution for nebulization 175 mcg inhalation DAILY (DME) 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 See Rx Instructions .Route .MEDSUPPLY Qty: 1 0RF Rx Instructions: As directed gabapentin 400 mg capsule 400 mg PO TID albuterol sulfate 2.5 mg /3 mL (0.083 %) Solution For Nebulization 2.5 mg INHALATION QID PRN (Reason: Shortness Of Breath) Discharge Orders: Discharge Order (Routine); Ordered 07/28/22 Ordered By: Alexey Toussaint Referrals: Tiffanie Cat FNP [Primary Care Provider] - 08/03/22 10:30 am Jef Orona M.D [Physician] - 2 weeks Discharge Diet: Usual diet Discharge Activity: Increase activity as tolerated Patient Instructions: Chest Pain (ED), Acute Headache (ED), Opioid Safety Activity Restrictions/Additional Instructions: Please follow-up with vp human resources within next 2 weeks. Please follow-up with the primary care provider onsite appointment. You are started on 3 new medications which are as follows. Please take aspirin 81 mg daily, atorvastatin 40 mg daily and metoprolol 25 mg twice daily. Attestations Medical Necessity Statement*: Patient was admitted for atypical chest pain and multiple diagnoses including pulmonary embolism, carotid artery dissection and CAD has been ruled out. Patient is being discharged back home on adjusted medications with advised to follow-up with a primary care provider and vp human resources on set appointments. Time Spent in Patient Care*: greater than 30 min Specific Discharge Activities: Specific discharge activities: educating patient, educating and/or supporting family/caregiver, discussing with pcp/other providers, documenting/other paperwork and evaluating patient/reviewing data Status at Discharge: Cognitive status at discharge: cognitively intact, Behavioral status at discharge: cooperative, Functional status at discharge: independent ambulation Overall status at discharge: patient is back to baseline Quality Metrics Clinical Quality Measures: [ No reported AMI, CVA or VTE this stay] Coding Level of Care Code Acute Manager Of Regulatory Affairs for Claribel Fwd Diagnoses Atypical chest pain R07.89 Abnormal feeling R44.9 COPD (chronic obstructive pulmonary disease) J44.9 Uyxwo-6-bmjszodaghu deficiency E88.01
--- NOTE | 2022-07-29 07:04 | PC.OT ---
OT EVALUATION ORDERS RECEIVED. PATIENT DISCHARGED BEFORE EVALUATION COULD BE COMPLETED.
--- NOTE | 2022-07-29 07:38 | ECG_ITS ---
[facility] Test Date: 2022-07-28 Pat Name: Aleida Sheriff Department: Room: 276 Gender: Female Log Cutter: : 1950 Requested By: Leoncio Bustos Order Number: [id number] Keyanna MD: Chandrakant Krishnamurthy M.D. Interpretive Statements NAME OF STUDY: LEXISCAN SESTAMIBI STRESS TEST INDICATION: Chest Pain, PROCEDURE: At the baseline, the EKG revealed normal sinus rhythm with normal ST Ts. The baseline heart was 72 bpm with a blood pressue of 130/72 mm of Hg Lexiscan was infused over a period of 20 seconds. A total of 0.4 milligrams of Lexiscan was infused. The stress phase was continued for a total of 5 minutes. Heart rate at the end of the stress phase was 91 bpm with a blood pressure 144/69 mm of Hg. The EKG at the peak infusion revealed no significant changes. Sestamibi was injected 20 seconds after the Lexiscan infusion. Heart rate at the end of the recovery phase was 83 bpm with a blood pressure of 135/63 mm of Hg. CONCLUSION: 1. No significant EKG changes with the LexiScan infusion 2. No LexiScan induced chest pain or cardiac arrhythmia 3. Normal blood pressure and heart rate response 4. Sestamibi/sestamibi perfusion scan pending; see separate report. Electronically Signed On 07-31-2022 11:43:23 PLASTIC SURGERY SPECIALIST by Chandrakant Krishnamurthy M.D. [email or web address]
== END 2022-07-28 16:19 | disposition home or self-care (01) ==
LOC: ER 07-28 04:09 → MEDSURG 07-28 04:25
PROVIDERS: Admitting Provider Family Medicine; Emergency Provider Emergency Medicine; PCP Nurse Practitioner Family; Visit Provider Student in an Organized Health Care Education/Training Program
DX: R07.89 Other chest pain (principal); R44.9 Unspecified symptoms and signs involving general sensations and perceptions; J44.9 Chronic obstructive pulmonary disease, unspecified; E88.01 Alpha-1-antitrypsin deficiency; Z87.891 Personal history of nicotine dependence; M17.10 Unilateral primary osteoarthritis, unspecified knee; K44.9 Diaphragmatic hernia without obstruction or gangrene
CPT/HCPCS: 36415; 70496; 70498; 71045; 71275; 78452; 80053; 81003; 83735; 83880; 84145; 84443; 84484; 85025; 85378; 86140; 87426; 87804; 93005; 93017; 93306; 94640; 94664; 96374; 99285; A9500; G0378; J2785; J7030; J7626; Q9967

== ENCOUNTER → 2022-08-11 10:28 | Outpatient (BNVA) | payer MEDICARE, OTHER, SELFPAY | PROVIDERS: PCP Nurse Practitioner Family; Visit Provider Nurse Practitioner Family | DX: R07.89 Other chest pain (principal); Z87.891 Personal history of nicotine dependence | CPT/HCPCS: 99213 ==

== ENCOUNTER → 2022-10-30 10:40 | Outpatient (BNVA) | payer MEDICARE, OTHER, SELFPAY | PROVIDERS: PCP Nurse Practitioner Family; Visit Provider Internal Medicine | DX: Z01.818 Encounter for other preprocedural examination (principal); R07.9 Chest pain, unspecified; J44.9 Chronic obstructive pulmonary disease, unspecified; Z87.891 Personal history of nicotine dependence | CPT/HCPCS: 99214 ==

== ENCOUNTER → 2022-11-05 11:29 | Outpatient (BNVA) | payer MEDICARE, OTHER, SELFPAY | PROVIDERS: PCP Nurse Practitioner Family; Visit Provider Nurse Practitioner Family | DX: K21.9 Gastro-esophageal reflux disease without esophagitis (principal) | CPT/HCPCS: 87338 ==

== ENCOUNTER → 2022-12-08 11:27 | Outpatient (BNVA) | payer MEDICARE, OTHER, SELFPAY | PROVIDERS: PCP Nurse Practitioner Family; Visit Provider Nurse Practitioner Family | DX: R53.83 Other fatigue (principal); I10 Essential (primary) hypertension; R25.2 Cramp and spasm; D64.9 Anemia, unspecified | CPT/HCPCS: 80053; 80061; 82550; 82607; 83540; 83735; 84439; 84443; 84481; 85025 ==

== ENCOUNTER 2022-12-17 09:56 | Outpatient (CLI) | payer MEDICARE, OTHER, SELFPAY ==
[2022-12-17 10:38] LABS: Alanine Aminotransferase 18 U/L (0-33); Albumin Level 3.8 g/dL (3.5-5.2); Alkaline Phosphatase 48 U/L (35-105); Anion Gap 13.7 (5-19); Aspartate Amino Transferase 19 U/L (0-32); Blood Urea Nitrogen 17 mg/dL (8-23); Calcium 8.4 mg/dL (8.5-10.5); Carbon Dioxide 26 mmol/L (22-29); Chloride 103 mmol/L (98-107); Creatine Phosphokinase 269 U/L (26-192); Globulin 2.6 g/dL (1.3-4.6); Glucose 102 mg/dL (65-115); Osmolality Calculated 288 mOsm/kg (285-295); Potassium 4.7 mmol/L (3.5-5.1); Sodium 138 mmol/L (136-145); Total Bilirubin 0.4 mg/dL (0.15-1.2); Total Protein 6.4 g/dL (6.6-8.7)
== END 2022-12-17 09:57 | disposition home or self-care (01) ==
PROVIDERS: PCP Nurse Practitioner Family; Visit Provider Nurse Practitioner Family
DX: R25.2 Cramp and spasm (principal); R53.83 Other fatigue; R74.8 Abnormal levels of other serum enzymes
CPT/HCPCS: 36415; 80053; 82550

== ENCOUNTER 2023-01-08 14:46 | Outpatient (CLI) | payer MEDICARE, OTHER, SELFPAY ==
[2023-01-08 15:26] LABS: Alanine Aminotransferase 18 U/L (0-33); Albumin Level 3.6 g/dL (3.5-5.2); Alkaline Phosphatase 47 U/L (35-105); Aspartate Amino Transferase 21 U/L (0-32); Blood Urea Nitrogen 16 mg/dL (8-23); Calcium 8.9 mg/dL (8.5-10.5); Carbon Dioxide 24 mmol/L (22-29); Chloride 104 mmol/L (98-107); Globulin 2.8 g/dL (1.3-4.6); Glucose 112 mg/dL (65-115); Osmolality Calculated 290 mOsm/kg (285-295); Sodium 139 mmol/L (136-145); Total Bilirubin 0.2 mg/dL (0.15-1.2); Total Protein 6.4 g/dL (6.6-8.7)
[2023-01-08 15:54] LABS: Anion Gap 15.2 (5-19); Potassium 4.2 mmol/L (3.5-5.1)
[2023-01-08 15:56] LABS: Creatine Phosphokinase 363 U/L (26-192)
== END 2023-01-08 14:47 | disposition home or self-care (01) ==
PROVIDERS: PCP Nurse Practitioner Family; Visit Provider Nurse Practitioner Family
DX: R25.2 Cramp and spasm (principal); R53.83 Other fatigue; R74.8 Abnormal levels of other serum enzymes
CPT/HCPCS: 36415; 80053; 82550

== ENCOUNTER 2023-01-26 15:21 | Outpatient (CLI) | payer MEDICARE, OTHER, SELFPAY ==
[2023-01-26 16:16] LABS: CKMB 4.1 ng/mL (0-5.34); Creatine Phosphokinase 181 U/L (26-192)
== END 2023-01-26 15:22 | disposition home or self-care (01) ==
PROVIDERS: PCP Nurse Practitioner Family; Visit Provider Nurse Practitioner Family
DX: R74.8 Abnormal levels of other serum enzymes (principal)
CPT/HCPCS: 82550; 82553

== ENCOUNTER → 2023-02-01 13:49 | Outpatient (BNVA) | payer MEDICARE, OTHER, SELFPAY | PROVIDERS: PCP Nurse Practitioner Family; Visit Provider Nurse Practitioner Family | DX: R39.15 Urgency of urination (principal) | CPT/HCPCS: 81000; 87077; 87086; 87184 ==

== ENCOUNTER → 2023-02-12 09:22 | Outpatient (BNVA) | payer MEDICARE, OTHER, SELFPAY | PROVIDERS: PCP Nurse Practitioner Family; Visit Provider Nurse Practitioner Family | DX: R39.15 Urgency of urination (principal) | CPT/HCPCS: 87086 ==

== ENCOUNTER → 2023-08-02 12:45 | Outpatient (BNVA) | payer MEDICARE, OTHER, SELFPAY | PROVIDERS: PCP Nurse Practitioner Family; Visit Provider Nurse Practitioner Family | DX: I20.89 Other forms of angina pectoris (principal); Z87.891 Personal history of nicotine dependence | CPT/HCPCS: 99213 ==

== ENCOUNTER → 2023-09-22 09:59 | Outpatient (BNVA) | payer MEDICARE, OTHER, SELFPAY | PROVIDERS: PCP Nurse Practitioner Family; Visit Provider Nurse Practitioner Family | DX: E78.5 Hyperlipidemia, unspecified; I10 Essential (primary) hypertension | CPT/HCPCS: 80053; 80061 ==

== ENCOUNTER 2024-02-01 10:42 | Outpatient (CLI) | payer MEDICARE, OTHER, SELFPAY ==
[2024-02-01 12:08] LABS: Erythrocyte Sedimentation Rate 8 mm/hr (0-15)
== END 2024-02-01 10:43 | disposition home or self-care (01) ==
PROVIDERS: PCP Nurse Practitioner Family; Visit Provider Internal Medicine Rheumatology
DX: L40.50 Arthropathic psoriasis, unspecified (principal)
CPT/HCPCS: 36415; 85651; 86140

== ENCOUNTER → 2024-02-08 12:59 | Outpatient (BNVA) | payer MEDICARE, OTHER, SELFPAY | PROVIDERS: PCP Nurse Practitioner Family; Visit Provider Internal Medicine | DX: Z87.898 Personal history of other specified conditions (principal); J44.9 Chronic obstructive pulmonary disease, unspecified; Z87.891 Personal history of nicotine dependence | CPT/HCPCS: 99213 ==

== ENCOUNTER 2024-02-16 12:04 | Outpatient (CLI) | payer MEDICARE, OTHER, SELFPAY ==
--- NOTE | 2024-02-16 12:11 | XR_ITS ---
WS: [id number] KUB, AP view, 02/16/2024 Clinical Data: R10.9 - Unspecified abdominal pain Comparison: None. Findings: No abnormal intraabdominal masses or calcifications are seen. There is no dilatated small bowel or ev idence of obstruction. There is air in the stomach, small bowel and colon. There is a large amount of fecal material in the colon. There is a dextroscoliosis of the lumbar spine. There are cholecystectomy clips in the right u pper quadrant. XR/XR KUB [id number] Impression: Large amount of fecal material in the colon.
[2024-02-16 12:40] LABS: Basophils # 0.1 10^3/uL (0.0-0.1); Basophils % 0.8 %; Eosinophils # 0.2 10^3/uL (0.0-0.8); Eosinophils % 2.6 %; Hematocrit 40.2 % (36-47); Lymphocytes # 2.1 10^3/uL (0.8-4.8); Lymphocytes % 33.2 %; Mean Corpuscular HGB Conc 32.6 g/dL (30-55); Mean Corpuscular Hemoglobin 31.3 pg (27-33); Mean Corpuscular Volume 96.2 fl (85-98); Mean Platelet Volume 8.6 fL (7.4-10.4); Monocytes # 0.9 10^3/uL (0.2-0.9); Monocytes % 13.9 %; Neutrophils % 49.3 %; Nucleated Red Blood Cells % 0 %; Platelet Count 300 10^3/cmm (157-399); Red Blood Count 4.18 10^6/uL (3.85-5.65); White Blood Count 6.27 10^3/uL (3.29-11.43)
== END 2024-02-16 12:05 | disposition home or self-care (01) ==
PROVIDERS: PCP Nurse Practitioner Family; Visit Provider Nurse Practitioner Family
DX: R10.9 Unspecified abdominal pain (principal); R10.84 Generalized abdominal pain
CPT/HCPCS: 36415; 74018; 85025

== ENCOUNTER → 2024-10-20 11:42 | Outpatient (BNVA) | payer MEDICARE, OTHER, SELFPAY | PROVIDERS: PCP Nurse Practitioner Family; Visit Provider Nurse Practitioner Family | DX: E78.2 Mixed hyperlipidemia (principal); I10 Essential (primary) hypertension | CPT/HCPCS: 80053; 80061 ==

== ENCOUNTER → 2025-02-07 12:29 | Outpatient (BNVA) | payer MEDICARE, SELFPAY | PROVIDERS: PCP Nurse Practitioner Family; Visit Provider Internal Medicine | DX: J44.9 Chronic obstructive pulmonary disease, unspecified (principal); Z87.898 Personal history of other specified conditions; Z87.891 Personal history of nicotine dependence | CPT/HCPCS: 99213 ==